=== PATIENT | female | born 1975 | race Caucasian/White ===

== ENCOUNTER → 2016-07-04 | Outpatient (CLI) | payer BC ==
[2016-07-09 10:10] LABS: 18KDIGG BAND NONREACTIVE (NONREACTIVE); 23KDIGG BAND NONREACTIVE (NONREACTIVE); 23KDIGM BAND NONREACTIVE (NONREACTIVE); 28KDIGG BAND NONREACTIVE (NONREACTIVE); 30KDIGG BAND NONREACTIVE (NONREACTIVE); 39KDIGG BAND NONREACTIVE (NONREACTIVE); 39KDIGM BAND NONREACTIVE (NONREACTIVE); 41KDIGG BAND NONREACTIVE (NONREACTIVE); 41KDIGM BAND NONREACTIVE (NONREACTIVE); 45KDIGG BAND NONREACTIVE (NONREACTIVE); 58KDIGG BAND REACTIVE (NONREACTIVE); 66KDIGG BAND REACTIVE (NONREACTIVE); 93KDIGG BAND NONREACTIVE (NONREACTIVE)
[2016-07-09 12:02] LABS: ANAPLASMA PHAGOCYTOPHIL IGG <1:64 (<1:64); ANAPLASMA PHAGOCYTOPHIL IGM <1:20 (<1:20); CYTOMEGALOVIRUS IGG AB <0.60 U/ML; PARVOVIRUS IgG INDEX 0.2 (<0.9); PARVOVIRUS IgM INDEX 0.1 (<0.9)
== END | disposition home or self-care (01) ==
LOC: C.LAB1850 10:38
PROVIDERS: ATTEND Internal Medicine Infectious Disease
DX: G62.9 Polyneuropathy, unspecified (principal)